=== PATIENT | female | born 1970 | race Two or more races ===

== ENCOUNTER 2017-11-29 18:21 | Emergency (ER) | payer OTHER ==
[2017-11-29 18:25] VITALS: BP 106/83
--- NOTE | 2017-11-29 18:39 | EDPHY ---
H & P Stated Complaint: r abd pain radiates to back us today/gall bladder issues Time Seen by Provider: 11/29/17 18:38 HPI/ROS: HPI: This is a 47-year-old female who presents with Chief Complaint: right abd pain radiates to back us today/gall bladder issues Location: Right upper quadrant Quality: Pain Duration: Several weeks Signs and Symptoms: no fever, no nausea, no vomiting, no hematemesis, no blood in stool, no abdominal bloating, no diarrhea, no back pain, no urinary symptoms , no vaginal bleeding/discharge, no indigestion, no chest pain, no shortness of breath Timing: chronic Severity: moderate Context: [facility]. Patient and are at bedside and refused for me to examine them or draw labs or evaluate. The patient denies any pain at this time and is requesting to be discharged. Labs were not faxed from [facility] for me to review. LMP 2-3 weeks ago. Modifying Factors: None Comment: ROS: see HPI Constitutional: No fever, no chills, no weight loss Eyes: No blurred vision Respiratory: No shortness of breath, no cough Cardiovascular: No chest pain, no palpitations Gastrointestinal: No nausea, no vomiting, no diarrhea, no hematemesis, no blood in stool Genitourinary: No dysuria, no blood in urine Extremities: No myalgias, no edema Neurologic: No weakness, no numbness Skin: No rashes, no petechiae Hematologic: No bruising, no bleeding MEDICAL/SURGICAL/SOCIAL HISTORY: Medical history: Generally healthy. Does not take any regular medications. Surgical history: Denies Social history: Family history noncontributory. CONSTITUTIONAL: Middle-aged female, well-appearing, and daughter at bedside, awake and alert, no obvious distress Patient refused for me to examine her. Source: Patient, Family (), Old records Exam Limitations: No limitations - Personal History LMP (Females 10-55): 22-28 Days Ago Current Tetanus/Diphtheria Vaccine: Yes - Medical/Surgical History Hx Asthma: No Hx Chronic Respiratory Disease: No Hx Diabetes: No Hx Cardiac Disease: No Hx Renal Disease: No Hx Cirrhosis: No Hx Alcoholism: No Hx HIV/AIDS: No Hx Splenectomy or Spleen Trauma: No Other PMH: denies - Social History Smoking Status: Never smoked Constitutional: Initial Vital Signs Temperature (C) 37.2 C 11/29/17 18:23 Heart Rate 66 11/29/17 18:23 Respiratory Rate 17 11/29/17 18:23 Blood Pressure 106/83 H 11/29/17 18:23 O2 Sat (%) 97 11/29/17 18:23 O2 Delivery Mode Room Air Allergies/Adverse Reactions: No Known Allergies Allergy (Unverified 11/29/17 18:23) Home Medications: Medication Instructions Recorded NK [No Known Home Meds] 11/29/17 Medical Decision Making ED Course/Re-evaluation: Vital signs stable upon arrival I reviewed the ultrasound report that shows cholelithiasis with abnormal gallbladder wall thickening, low-grade steatosis, common bile duct measures 3.8 mm, gallbladder is moderately distended and there are multiple small shadow being mobile echogenic gallstones present with wall echo shadow complex. No pericholecystic fluid or sonographic Abdi sign. Patient is not allowing me to draw labs or examine her. She denies any pain at this time. She wishes to be discharged home with General surgery follow-up outpatient. I counseled her on a low-fat gallbladder diet and discussed biliary colic versus acute on chronic cholecystitis. This patient was seen under the supervision of my secondary supervising physician. I evaluated care for this patient independently. Discussed this patient with Dr. Davis who did not see the patient. Differential Diagnosis: Abdominal pain including but not limited to appendicitis, cholecystitis, gastritis and urinary tract infection. Departure - Departure Disposition: Home, Routine, Self-Care Clinical Impression: Biliary colic Cholelithiasis Qualifiers: Cholelithiasis location: gallbladder Cholecystitis presence: without cholecystitis Biliary obstruction: without biliary obstruction Qualified Code(s) : K80.20 - Calculus of gallbladder without cholecystitis without obstruction Condition: Good Instructions: Biliary Colic (ED), Gallstones (ED), Low Fat Diet (ED) Additional Instructions: Consume a minimum of 8-10 glasses of water or electrolyte fluid replacement drinks that include Gatorade, Powerade, Pedialyte. Eat a soft bland diet for the next 48 hours and then slowly advance as tolerated to a low-fat/gallbladder diet. Follow-up with General surgery for gallbladder and gallstone evaluation in the next 5-7 days. Return to the Emergency Room if symptoms do not resolve in the next 48-72 hours , you spike a fever > 102 F, or experience intractable abdominal pain/nausea/ vomiting. Referrals: Jared Packer MD [Medical Doctor] - As per Instructions
== END 2017-11-29 19:18 | disposition home or self-care (01) ==
DX: K80.70 Calculus of gallbladder and bile duct without cholecystitis without obstruction (principal)

== ENCOUNTER → 2017-11-29 | Outpatient (CLI) | payer OTHER | LOC: FIMAGING 13:40 | PROVIDERS: ATTEND Physician Assistant | DX: K80.20 Calculus of gallbladder without cholecystitis without obstruction (principal); K76.0 Fatty (change of) liver, not elsewhere classified ==